=== PATIENT | male | born 1945 | race Caucasian/White ===

== ENCOUNTER 2024-02-03 13:43 | Outpatient (CLI) | payer MEDICARE, BC, SELFPAY ==
[2024-02-03 14:51] LABS: Chloride 105 mmol/L (98-107); Platelet Count 99 K/mm3 (142-424)
[2024-02-03 14:52] LABS: Potassium 4.3 mmoL/L (3.5-5.1); Sodium 139 mmol/L (136-145)
[2024-02-03 14:54] LABS: Alanine Aminotransferase 25 U/L (12-78); Alkaline Phosphatase 104 U/L (38-126); Anion Gap 8.3 mEq/L (5-15); Aspartate Amino Transferase 41 U/L (17-59); Bilirubin,Total 0.7 mg/dl (0.2-1.3); Blood Urea Nitrogen 26 mg/dl (9-20); Carbon Dioxide 30 mmol/L (22.0-30.0); Estimated Glomerular Filt Rate 72 ml/min (>60); GFR (African American) 87 ML/MIN (>60)
[2024-02-03 14:55] LABS: Albumin Level 4.3 g/dl (3.5-5.0); Albumin/Globulin Ratio 1.8 (1.1-1.8); Calcium 9.4 mg/dl (8.4-10.2); Globulin 2.4 g/dL (1.3-3.2); Glucose 87 mg/dl (74-100); Total Protein,Serum 6.7 g/dl (6.3-8.2)
[2024-02-03 14:58] LABS: Basophils # 0.2 K/mm3 (0-0.2); Eosinophils # 0.2 K/mm3 (0.0-0.4); Eosinophils % 0.8 % (0.1-12.0); Hematocrit 42.9 % (42.0-52.0); Hemoglobin 13.9 g/dL (14.1-18.0); Lymphocytes # 12.5 K/mm3 (0.7-4.5); Lymphocytes % 66.5 % (10-50); Mean Corpuscular HGB Conc 32.3 g/dL (31.8-35.4); Mean Corpuscular Volume 105.3 fl (80-94); Mean Platelet Volume 16.2 fl (7.4-10.4); Monocytes # 0.4 K/mm3 (0.1-1.0); Monocytes % 2.4 % (1.7-9.3); Neutrophils # 5.5 K/mm3 (1.8-7.8); Neutrophils % 29.4 % (37.0-80.0); Platelet Count 60 K/mm3 (142-424); Red Blood Count 4.08 M/mm3 (4.60-6.20); Red Cell Distribution Width 13.4 % (11.5-17.5); White Blood Count 18.8 K/mm3 (4.8-10.8)
[2024-02-03 15:01] LABS: MANUAL DIFFERENTIAL MANUAL DIFFERENTIAL (MANUAL DIFF)
[2024-02-03 15:19] LABS: Lymphocytes % 70 % (10-50); Macrocytosis 1+; Monocytes % 3 % (2-9); Neutrophils % 25 % (42-76); Platelet Estimate Moderate Decrease; Total Cells Counted 100
[2024-02-03 15:20] LABS: Lactate Dehydrogenase 208 U/L (313-618)
== END 2024-02-03 23:59 ==
LOC: LAB 13:48
PROVIDERS: Visit Provider Internal Medicine Medical Oncology
DX: C91.10 Chronic lymphocytic leukemia of B-cell type not having achieved remission (principal); Z79.899 Other long term (current) drug therapy
CPT/HCPCS: 36415; 80053; 83615; 85007; 85025; 85049

== ENCOUNTER 2024-08-11 14:29 | Outpatient (CLI) | payer MEDICARE, BC, SELFPAY ==
[2024-08-12 14:15] LABS: Lyme Ab CIA Negative (Negative)
== END 2024-08-11 23:59 | disposition home or self-care (01) ==
LOC: LAB 14:30
PROVIDERS: Visit Provider Internal Medicine Medical Oncology
DX: C91.10 Chronic lymphocytic leukemia of B-cell type not having achieved remission (principal)
CPT/HCPCS: 36415; 86618

== ENCOUNTER 2025-02-08 13:59 | Outpatient (CLI) | payer MEDICARE, BC, SELFPAY ==
[2025-02-08 14:39] LABS: Basophils # 0.1 K/mm3 (0-0.2); Basophils % 0.3 % (0.1-2.0); Eosinophils # 0.2 K/mm3 (0.0-0.4); Eosinophils % 0.7 % (0.1-12.0); Hematocrit 39.5 % (42.0-52.0); Hemoglobin 12.9 g/dL (14.1-18.0); Lymphocytes # 24.7 K/mm3 (0.7-4.5); Lymphocytes % 78.9 % (10-50); Mean Corpuscular HGB Conc 32.7 g/dL (31.8-35.4); Mean Platelet Volume 10.8 fl (7.4-10.4); Monocytes # 1.6 K/mm3 (0.1-1.0); Neutrophils # 4.7 K/mm3 (1.8-7.8); Platelet Count 115 K/mm3 (142-424); Red Blood Count 3.91 M/mm3 (4.60-6.20)
[2025-02-08 14:47] LABS: Neutrophils % 14.9 % (37.0-80.0)
[2025-02-08 14:48] LABS: White Blood Count 31.3 K/mm3 (4.8-10.8)
[2025-02-08 14:50] LABS: MANUAL DIFFERENTIAL MANUAL DIFFERENTIAL (MANUAL DIFF)
[2025-02-08 14:58] LABS: Alanine Aminotransferase 16 U/L (12-78); Albumin Level 4.4 g/dl (3.5-5.0); Alkaline Phosphatase 84 U/L (38-126); Anion Gap 9.7 mEq/L (5-15); Aspartate Amino Transferase 28 U/L (17-59); Bilirubin,Total 0.7 mg/dl (0.2-1.3); Blood Urea Nitrogen 18 mg/dl (9-20); Calcium 9.9 mg/dl (8.4-10.2); Carbon Dioxide 29 mmol/L (22.0-30.0); Chloride 103 mmol/L (98-107); Estimated Glomerular Filt Rate 81 ml/min (>60); GFR (African American) 98 ML/MIN (>60); Globulin 2.2 g/dL (1.3-3.2); Glucose 122 mg/dl (74-100); Lactate Dehydrogenase 198 U/L (313-618); Potassium 4.7 mmoL/L (3.5-5.1); Sodium 137 mmol/L (136-145); Total Protein,Serum 6.6 g/dl (6.3-8.2)
[2025-02-08 17:41] LABS: Monocytes % 2 % (2-9); Neutrophils % 22 % (42-76); Platelet Estimate Normal; RBC Morphology Normal; Total Cells Counted 100
[2025-02-08 17:43] LABS: Atypical Lymphocytes % 3; Lymphocytes % 73 % (10-50)
[2025-02-10 14:04] LABS: Peripheral Smear Review Scanned Result
== END 2025-02-08 23:59 | disposition home or self-care (01) ==
LOC: LAB 14:01
PROVIDERS: PCP Internal Medicine; Visit Provider Internal Medicine Medical Oncology
DX: C91.10 Chronic lymphocytic leukemia of B-cell type not having achieved remission (principal)
CPT/HCPCS: 36415; 80053; 83615; 85007; 85025; 85027

== ENCOUNTER 2025-08-09 13:39 | Outpatient (CLI) | payer MEDICARE, BC, SELFPAY ==
--- OUTSIDE RECORDS SUMMARY | 2025-08-09 13:45 | XMS_ITS ---
Author Organization [facility] Address [address] [place] [address] Care Team Providers Care Technical Sales Advisor Name Role Phone BeitingBhargav MD Primary Care Provider + [phone] Active Problems Problem Noted Date Diagnosed Date AV block, complete 02/10/2024 Presence of cardiac pacemaker 02/10/2024 Bradycardia 10/12/2023 Heart block 10/12/2023 Essential hypertension 10/12/2023 Chronic lymphocytic leukemia (CLL), B-cell 10/12 Mixed hyperlipidemia 10/12/2023 DM (diabetes mellitus), type 2 10/12/2023 Hypothyroidism (acquired) 10/12/2023 SSS (sick sinus syndrome) 10/12/2023 Current Treatment and Therapy Plans No current plan information found. Past Treatment and Therapy Plans No past plan information found. Lifetime Dose Tracking * Chemical Lifetime Dose Automatic Entry Manual Entr y Cumulative Air Kerma 131 mGy 0 mGy 131 mGy
--- OUTSIDE RECORDS SUMMARY | 2025-08-09 13:45 | XMS_ITS | Encounter Summary ---
Author Organization Healthcare Address [address] [place] [address] Care Team Providers Care Habilitative Interventionist Name Role Phone Unavailable Primary Care Provider Unavailabl e Encounter Details Date Type Department Care Team (Late st Contact Info) Description 09/27/2021 Orders Only [facility] @ [facility] [address] [place] [address] Bhargav Gambino MD 1221 [facility] [address] [place] [address] Social History Tobacco Use Types Packs/Day Years Used Date Smoking Tobacco: Never Assessed Sex and Gender Information Value Date Recorded Sex Assigned at Not on file Legal Sex Male 7:52 PM EDT Gender Identity Not on file Sexual Orientation Not on file documented as of this encounter Plan of Treatment Not on file documented as of this encounter Procedures Procedure Name Priority Date/Time Associated Diagnosis Comments HEMOGLOBIN A1C Routine 09/27/2021 12:12 PM EST documented in this encounter Results * (ABNORMAL) Hemoglobin A1c (09/27/2021 12:12 PM EST) External Glycosylated Hemoglobin (Hgb A1C) 8.1(H) 0.0 - 5.6 % [facility] External Estimated Average Glucose 186 mg/dl (calc) [facility] Comment: A1c values between 5.7% to 6.4% indicate prediabetes. Results 6.5% or greater is diagnostic of diabetes. [employer] (diabetes.org) 09/27/2021 12:1 2 PM EST 09/27/2021 12:25 PM EST us Bhargav Gambino MD LAB BLOOD ORDERABLES Final R esult [facility] [address] [place] [address], documented in this encounter Visit Diagnoses Not on filedocumented in this encounter
--- OUTSIDE RECORDS SUMMARY | 2025-08-09 13:45 | XMS_ITS | Encounter Summary ---
Author Organization Healthcare Address [address] [place] [address] Care Team Providers Care 4Th Grade Teacher Name Role Phone Unavailable Primary Care Provider Unavailabl e Encounter Details Date Type Department Care Team (Late st Contact Info) Description 04/04/2022 Orders Only [facility] @ [facility] [address] [place] [address] Bhargav Gambino MD 1221 [facility] [address] [place] [address] Social History Tobacco Use Types Packs/Day Years [...] Procedure Name Priority Date/Time Associated Diagnosis Comments LIPID PROFILE, PLASMA Routine 04/04/2022 10:35 AM EDT documented in this encounter Results * (ABNORMAL) Lipid Profile, Plasma (04/04/2022 10:35 AM EDT) External HDL Cholesterol 36(A) [facility] Comment: Male > 39 mg/dL Female > 49 mg/dL External Triglycerides 49 0 - 149 mg/dL [facility] Comment: TRIGLYCERIDE RANGES NORMAL: < 150 BORDERLINE HIGH: 150 - 199 HIGH: 200 - 499 VERY HIGH: > OR = 500 External Cholesterol 114 0 - 199 mg/dL [facility] Comment: CHOLESTEROL (TOTAL) RANGES DESIRABLE: < 200 BORDERLINE: 200 - 239 HIGHER RISK: > 239 External LDL Cholesterol 68 0 - 99 mg/dl (calc) [facility] Comment: LDL CHOLESTEROL RANGES OPTIMAL: < 100 NEAR/ABOVE OPTIMAL: 100 - 129 BORDERLINE HIGH: 130 - 159 HIGH: 160 - 189 VERY HIGH: > OR = 190 04/04/2022 10:3 5 AM EDT 04/04/2022 10:57 AM EDT us Bhargav Gambino MD LAB BLOOD ORDERABLES Final R esult Performing Organization Address City/State/[facility] Co de Phone Number [facility] [address] [place] [address], documented in this encounter Visit Diagnoses Not on filedocumented in this encounter
--- OUTSIDE RECORDS SUMMARY | 2025-08-09 13:45 | XMS_ITS | Encounter Summary ---
Author Organization Healthcare Address [address] [place] [address] Care Team Providers Care Store Product Demonstrator Name Role Phone Unavailable Primary Care Provider Unavailabl e Encounter Details Date Type Department Care Team (Late st Contact Info) Description 04/04/2022 Orders Only [facility] @ [facility] [address] [place] [address] Bhargav Gambino MD 1221 [facility] [address] [place] [address] Social History Tobacco Use Types Packs/Day Years [...] Date/Time Associated Diagnosis Comments HEMOGLOBIN A1C Routine 04/04/2022 10:35 AM EDT documented in this encounter Results * (ABNORMAL) Hemoglobin A1c (04/04/2022 10:35 AM EDT) External Glycosylated Hemoglobin (Hgb A1C) 7.1(H) 0.0 - 5.6 % [facility] External Estimated Average Glucose 157 mg/dl (calc) [facility] Comment: A1c values between 5.7% to 6.4% indicate prediabetes. Results 6.5% or greater is diagnostic of diabetes. [employer] (diabetes.org) 04/04/2022 10:3 5 AM EDT 04/04/2022 10:55 AM EDT us Bhargav Gambino MD LAB BLOOD ORDERABLES Final R esult [facility] [address] [place] [address], documented in this encounter Visit Diagnoses Not on filedocumented in this encounter
--- OUTSIDE RECORDS SUMMARY | 2025-08-09 13:45 | XMS_ITS | Encounter Summary ---
Author Organization Healthcare Address [address] [place] [address] Care Team Providers Care Analytical Chemist Name Role Phone Unavailable Primary Care Provider Unavailabl e Encounter Details Date Type Department Care Team (Late st Contact Info) Description 04/04/2022 Orders Only [facility] @ [facility] [address] [place] [address] Bhargav Gambino MD 1221 [facility] [address] [place] [address] Social History Tobacco Use Types Packs/Day Years [...] Procedure Name Priority Date/Time Associated Diagnosis Comments MANUAL DIFFERENTIAL Routine 04/04/2022 1 0:35 AM EDT documented in this encounter Results * Manual Differential (04/04/2022 10:35 AM EDT) External Band Neutrophil% 1.0 0.0 - 7.0 % [facility] External Atypical Lymph% 0 0 - 1 % [facility] External Metamyelocyte % 0 0 - 1 % [facility] External Myelocyte % 0 0 - 1 % [facility] External Promyelocyte% 0 % [facility] External Blast% 0 % [facility] External Nucleated RBC%-Manual 0 /100 WBC [facility] External Smudge Cells 0 [facility] External RBC Morphology Comment NORMAL [facility] 04/04/2022 10:3 5 AM EDT 04/04/2022 10:56 AM EDT us Bhargav Gambino MD LAB BLOOD ORDERABLES Final R esult Performing Organization Address City/State/[facility] Co de Phone Number [facility] [address] [place] [address], documented in this encounter Visit Diagnoses Not on filedocumented in this encounter
--- OUTSIDE RECORDS SUMMARY | 2025-08-09 13:45 | XMS_ITS | Encounter Summary ---
Author Organization Healthcare Address [address] [place] [address] Care Team Providers Care Aoc Director Combat Plans Officer Name Role Phone Unavailable Primary Care Provider Unavailabl e Encounter Details Date Type Department Care Team (Late st Contact Info) Description 09/27/2021 Orders Only [facility] @ [facility] [address] [place] [address] Bhargav Gambino MD 1221 [facility] [address] [place] [address] Social History Tobacco Use Types Packs/Day Years [...] Procedure Name Priority Date/Time Associated Diagnosis Comments CBC WITH AUTO DIFFERENTIAL Routine 09/27/2021 12:12 PM EST documented in this encounter Results * (ABNORMAL) CBC and Differential (09/27/2021 12:12 PM EST) External WBC 15.6(H) 3.8 - 10.8 K/uL [facility] External Red Blood Cell (RBC) 4.38 4.20 - 5.80 M/uL [facility] External Hemoglobin 14.0 14.0 - 18.0 G/DL [facility] External Hematocrit 42.0 40.0 - 52.0 % [facility] External MCV 96 80 - 100 fL [facility] External MCH 32 26 - 35 PG [facility] External MCHC 33 32 - 36 G/DL [facility] External RDW 13.4 11.0 - 15.0 % [facility] External Mean Platelet Volume 9.3 6.2 - 10.5 fL [facility] External Platelets 132 130 - 400 K/uL [facility] Comment: Occ. macrothrombocytes noted. External Neutrophil# 6.2 1.6 - 8.4 K/uL [facility] External Lymphocyte# 8.0(H) 0.4 - 5.1 K/uL [facility] External Absolute Monocyte (Abs [place]) 1.1 0.0 - 1.2 K/uL [facility] External Eosinophils# 0.3 0.0 - 0.8 K/uL [facility] External Baso# 0.0 0.0 - 0.3 K/uL [facility] External Neutrophils % 40.0(L) 42.0 - 78.0 % [facility] External Lymphocyte % 51.0(H) 11.0 - 47.0 % [facility] External Monocyte % 7.0 0.0 - 11.0 % [facility] External Eosinophil% 2.0 0.0 - 7.0 % [facility] External Basophil % 0.0 0.0 - 3.0 % [facility] External Nucleated RBC%-Auto 0.1 0.0 - 0.9 % [facility] External Nucleated RBC Absolute 0.02 Not Estab. K/uL [facility] 09/27/2021 12:1 2 PM EST 09/27/2021 12:25 PM EST Bhargav Gambino MD LAB BLOOD ORDERABLES Final R esult [facility] [address] [place] [address], documented in this encounter Visit Diagnoses Not on filedocumented in this encounter
--- OUTSIDE RECORDS SUMMARY | 2025-08-09 13:45 | XMS_ITS | Encounter Summary ---
Author Organization Healthcare Address [address] [place] [address] Care Team Providers Care Relay Motorman Name Role Phone Unavailable Primary Care Provider Unavailabl e Encounter Details Date Type Department Care Team (Late st Contact Info) Description 10/04/2022 Orders Only [facility] @ [facility] [address] [place] [address] Bhargav Gambino MD 1221 [facility] [address] [place] [address] Social History Tobacco Use Types Packs/Day Years [...] Date/Time Associated Diagnosis Comments HEMOGLOBIN A1C Routine 10/04/2022 12:19 PM EST documented in this encounter Results * (ABNORMAL) Hemoglobin A1c (10/04/2022 12:19 PM EST) External Glycosylated Hemoglobin (Hgb A1C) 6.7(H) 0.0 - 5.6 % [facility] External Estimated Average Glucose 146 mg/dl (calc) [facility] Comment: A1c values between 5.7% to 6.4% indicate prediabetes. Results 6.5% or greater is diagnostic of diabetes. [place] (diabetes.org) 10/04/2022 12:1 9 PM EST 10/04/2022 12:26 PM EST us Bhargav Gambino MD LAB BLOOD ORDERABLES Final R esult [facility] [address] [place] [address], documented in this encounter Visit Diagnoses Not on filedocumented in this encounter
--- OUTSIDE RECORDS SUMMARY | 2025-08-09 13:45 | XMS_ITS | Encounter Summary ---
Author Organization Healthcare Address [address] [place] [address] Care Team Providers Care Highway Maintenance Crew Worker Name Role Phone Unavailable Primary Care Provider Unavailabl e Encounter Details Date Type Department Care Team (Late st Contact Info) Description 09/27/2021 Orders Only [facility] @ [facility] [address] [place] [address] Bhargav Gambino MD 1221 [facility] [address] [place] [address] Social History Tobacco Use Types Packs/Day Years [...] Procedure Name Priority Date/Time Associated Diagnosis Comments MICROALBUMIN/CREATI NINE RATIO Routine 09/27/2021 12:12 PM EST documented in this encounter Results * Microalbumin/Creatinine Ratio (09/27/2021 12:12 PM EST) External Microalbumin Urine Conc <12 0 - 19 mg/L [facility] External Creatinine,Ur Random <4 mg/dL [facility] Comment:NO NORMAL RANGE ES TABLISHED FOR RANDOM URINE. External Microalb/Creat Ratio see below 0 - 29 MCG/MG [facility] Comment:Unable to calculate microalbumin/creatinine ratio. 09/27/2021 12:1 2 PM EST 09/27/2021 1:28 PM EST us Bhargav Gambino MD LAB URINE ORDERABLES Final R esult [facility] [address] [place] [address], documented in this encounter Visit Diagnoses Not on filedocumented in this encounter
--- OUTSIDE RECORDS SUMMARY | 2025-08-09 13:45 | XMS_ITS | Encounter Summary ---
Author Organization Healthcare Address [address] [place] [address] Care Team Providers Care Tap And Die Maker Technician Name Role Phone Unavailable Primary Care Provider Unavailabl e Encounter Details Date Type Department Care Team (Late st Contact Info) Description 04/04/2022 Orders Only [facility] @ [facility] [address] [place] [address] Bhargav Gambino MD [address] [facility] [address] [place] [address] Social History Tobacco Use Types Packs/Day Years [...] Diagnosis Comments CBC WITH AUTO DIFFERENTIAL Routine 04/04/2022 10:35 AM EDT documented in this encounter Results * (ABNORMAL) CBC and Differential (04/04/2022 10:35 AM EDT) External WBC 10.9(H) 3.8 - 10.8 K/uL [facility] External Red Blood Cell (RBC) 4.15(L) 4.20 - 5.80 M/uL [facility] External Hemoglobin 13.5(L) 14.0 - 18.0 G/DL [facility] External Hematocrit 40.2 40.0 - 52.0 % [facility] External MCV 97 80 - 100 fL [facility] External MCH 33 26 - 35 PG [facility] External MCHC 34 32 - 36 G/DL [facility] External RDW 13.4 11.0 - 15.0 % [facility] External Mean Platelet Volume 8.8 6.2 - 10.5 fL [facility] External Platelets 60(L) 130 - 400 K/uL [facility] Comment: Occ. macrothrombocytes noted. External Neutrophil# 4.8 1.6 - 8.4 K/uL [facility] External Lymphocyte# 5.8(H) 0.4 - 5.1 K/uL [facility] External Absolute Monocyte (Abs [place]) 0.2 0.0 - 1.2 K/uL [facility] External Eosinophils# 0.1 0.0 - 0.8 K/uL [facility] External Baso# 0.0 0.0 - 0.3 K/uL [facility] External Neutrophils % 43.0 42.0 - 78.0 % [facility] External Lymphocyte % 53.0(H) 11.0 - 47.0 % [facility] External Monocyte % 2.0 0.0 - 11.0 % [facility] External Eosinophil% 1.0 0.0 - 7.0 % [facility] External Basophil % 0.0 0.0 - 3.0 % [facility] External Nucleated RBC%-Auto 0.2 0.0 - 0.9 % [facility] External Nucleated RBC Absolute 0.03 Not Estab. K/uL [facility] 04/04/2022 10:3 5 AM EDT 04/04/2022 10:56 AM EDT us Bhargav Gambino MD LAB BLOOD ORDERABLES Final R esult [facility] [address] [place] [address], documented in this encounter Visit Diagnoses Not on filedocumented in this encounter
--- OUTSIDE RECORDS SUMMARY | 2025-08-09 13:45 | XMS_ITS | Encounter Summary ---
Author Organization Healthcare Address [address] [place] [address] Care Team Providers Care Gifted Program Teacher Name Role Phone Unavailable Primary Care Provider Unavailabl e Encounter Details Date Type Department Care Team (Late st Contact Info) Description 09/27/2021 Orders Only [facility] @ [facility] [address] [place] [address] Bhargav Gambino MD [address] [place] [address] Social History Tobacco Use Types Packs/Day Years [...] Procedure Name Priority Date/Time Associated Diagnosis Comments TSH Routine 09/27/2021 12:12 PM EST documented in this encounter Results * Thyroid Stimulating Hormone, Plasma (09/27/2021 12:12 PM EST) External Thyroid Stimulating Hormone (TSH) 2.820 0.270 - 4.200 uIU/mL [facility] 09/27/2021 12:1 2 PM EST 09/27/2021 12:27 PM EST us Bhargav Gambino MD LAB BLOOD ORDERABLES Final R esult [facility] [address] [place] [address], documented in this encounter Visit Diagnoses Not on filedocumented in this encounter
--- OUTSIDE RECORDS SUMMARY | 2025-08-09 13:45 | XMS_ITS | Encounter Summary ---
Author Organization Healthcare Address [address] [place] [address] Care Team Providers Care Anvilsmith Name Role Phone Unavailable Primary Care Provider Unavailabl e Encounter Details Date Type Department Care Team (Late st Contact Info) Description 09/27/2021 Orders Only [facility] @ [facility] [address] [place] [address] Bhargav Gambino MD [address] [facility] [address] [place] [address] Social History Tobacco Use Types Packs/Day Years [...] Procedure Name Priority Date/Time Associated Diagnosis Comments COMPREHENSIVE METABOLIC PANEL, PLASMA Routine 09/27/2021 12:12 PM EST documented in this encounter Results * (ABNORMAL) Comprehensive Metabolic Panel, Plasma (09/27/2021 12:12 PM EST) External Glucose 162(H) 74 - 100 mg/dL [facility] External BUN 14 6 - 20 mg/dL [facility] External Creatinine Blood 0.91 0.70 - 1.28 mg/dL [facility] External BUN/Creat Ratio 15 10 - 20 (calc) [facility] External Sodium 143 136 - 145 mmol/L [facility] External Potassium 4.1 3.4 - 5.0 mmol/L [facility] External Chloride 105 98 - 107 mmol/L [facility] External Carbon Dioxide 25 22 - 31 mmol/L [facility] External Anion Gap (AG) 13 7 - 25 (calc) [facility] External Calcium 9.4 8.6 - 10.2 mg/dL [facility] External Total Protein 6.7 6.4 - 8.3 g/dL [facility] External Albumin 4.5 3.5 - 5.2 g/dL [facility] External Globulin 2.2 1.5 - 4.5 g/dL (calc) [facility] External Albumin/Globulin Ratio 2.0 1.1 - 2.5 (calc) [facility] External Bilirubin Total 0.6 0.1 - 1.2 mg/dL [facility] External Alkaline Phosphatase 131(H) 40 - 129 U/L [facility] External AST (SGOT) 23 0 - 40 U/L [facility] External ALT (SGPT) 17 0 - 41 U/L [facility] External EGFR (If AFR/AM) 94 >=60 [facility] External Estimated GFR 81 >=60 [facility] Comment: NOTE Chronic kidney disease is defined as kidney damage for more than 3 months or a GFR less than 60 mL/min/1.73 m2 for greater than 3 months. This calculation has not been validated in women. For pediatric patients refer to [employer] https://www.kidney.org/professionals/KDOQI/gfr_calculatorPed 09/27/2021 12:1 2 PM EST 09/27/2021 12:27 PM EST Bhargav Gambino MD LAB BLOOD ORDERABLES Final R esult [facility] [address] [place] [address], documented in this encounter Visit Diagnoses Not on filedocumented in this encounter
--- OUTSIDE RECORDS SUMMARY | 2025-08-09 13:45 | XMS_ITS | Encounter Summary ---
Author Organization Healthcare Address [address] [place] [address] Care Team Providers Care Rn Bsn Name Role Phone Unavailable Primary Care Provider Unavailabl e Encounter Details Date Type Department Care Team (Late st Contact Info) Description 09/27/2021 Orders Only [facility] @ [facility] [address] [place] [address] Bhargav Gambino MD 1221 [facility] [address] [place] [address] Social History Tobacco Use Types Packs/Day Years [...] Date/Time Associated Diagnosis Comments MANUAL DIFFERENTIAL Routine 09/27/2021 1 2:12 PM EST documented in this encounter Results * Manual Differential (09/27/2021 12:12 PM EST) External Band Neutrophil% 0.0 0.0 - 7.0 % [facility] External Atypical Lymph% 0 0 - 1 % [facility] External Metamyelocyte % 0 0 - 1 % [facility] External Myelocyte % 0 0 - 1 % [facility] External Promyelocyte% 0 % [facility] External Blast% 0 % [facility] External Nucleated RBC%-Manual 0 /100 WBC [facility] External Smudge Cells 0 [facility] External RBC Morphology Comment NORMAL [facility] 09/27/2021 12:1 2 PM EST 09/27/2021 12:25 PM EST us Bhargav Gambino MD LAB BLOOD ORDERABLES Final R esult Performing Organization Address City/State/[facility] Co de Phone Number [facility] [address] [place] [address], documented in this encounter Visit Diagnoses Not on filedocumented in this encounter
--- OUTSIDE RECORDS SUMMARY | 2025-08-09 13:45 | XMS_ITS | Encounter Summary ---
Author Organization Healthcare Address [address] [place] [address] Care Team Providers Care Surgical Physician Assistant Name Role Phone Unavailable Primary Care Provider Unavailabl e Encounter Details Date Type Department Care Team (Late st Contact Info) Description 09/27/2021 Orders Only [facility] @ [facility] [address] [place] [address] Bhargav Gambino MD 1221 [facility] [address] [place] [address] Social History Tobacco Use Types Packs/Day Years [...] Associated Diagnosis Comments LIPID PROFILE, PLASMA Routine 09/27/2021 12:12 PM EST documented in this encounter Results * (ABNORMAL) Lipid Profile, Plasma (09/27/2021 12:12 PM EST) External HDL Cholesterol 35(L) 56 - 242 mg/dL [facility] External Triglycerides 73 0 - 149 mg/dL [facility] Comment: TRIGLYCERIDE RANGES NORMAL: < 150 BORDERLINE HIGH: 150 - 199 HIGH: 200 - 499 VERY HIGH: > OR = 500 External Cholesterol 114 0 - 199 mg/dL [facility] Comment: CHOLESTEROL (TOTAL) RANGES DESIRABLE: < 200 BORDERLINE: 200 - 239 HIGHER RISK: > 239 External LDL Cholesterol 64 0 - 99 mg/dl (calc) [facility] Comment: LDL CHOLESTEROL RANGES OPTIMAL: < 100 NEAR/ABOVE OPTIMAL: 100 - 129 BORDERLINE HIGH: 130 - 159 HIGH: 160 - 189 VERY HIGH: > OR = 190 09/27/2021 12:1 2 PM EST 09/27/2021 12:27 PM EST us Bhargav Gambino MD LAB BLOOD ORDERABLES Final R esult [facility] [address] [place] [address], documented in this encounter Visit Diagnoses Not on filedocumented in this encounter
--- OUTSIDE RECORDS SUMMARY | 2025-08-09 13:45 | XMS_ITS | Encounter Summary ---
Author Organization Healthcare Address [address] [place] [address] Care Team Providers Care Flight Service Specialist Name Role Phone Unavailable Primary Care Provider Unavailabl e Encounter Details Date Type Department Care Team (Late st Contact Info) Description 04/04/2022 Orders Only [facility] [address] [place] [address] Bhargav Gambino MD [address] [facility] [address] [place] [address] Social History Tobacco Use Types Packs/Day Years [...] Associated Diagnosis Comments MICROALBUMIN/CREATI NINE RATIO Routine 04/04/2022 10:35 AM EDT documented in this encounter Results * Microalbumin/Creatinine Ratio (04/04/2022 10:35 AM EDT) External Microalbumin Urine Conc <12 0 - 19 mg/L [facility] External Creatinine,Ur Random 80 mg/dL [facility] Comment:NO NORMAL RANGE ES TABLISHED FOR RANDOM URINE. External Microalb/Creat Ratio see below 0 - 29 MCG/MG [facility] Comment:Unable to calculate microalbumin/creatinine ratio. 04/04/2022 10:3 5 AM EDT 04/04/2022 11:06 AM EDT us Bhargav Gambino MD LAB URINE ORDERABLES Final R esult [facility] [address] [place] [address], documented in this encounter Visit Diagnoses Not on filedocumented in this encounter
--- OUTSIDE RECORDS SUMMARY | 2025-08-09 13:45 | XMS_ITS | Clinical Summary ---
Author Organization [facility] Address [address] [place] [address] Care Team Providers Care Asset Protection Assistant Name Role Phone SonnymilagrosBhargav MD Primary Care Provider + [phone] Allergies No known active allergies Medications metFORMIN (GLUCOPHAGE) 1000 MG tablet Take 1 tablet by mouth Daily With Breakfast. Active aspirin 81 MG EC tablet Take 1 tablet by mouth Daily. OTC Active atorvastatin (LIPITOR) 20 MG tablet Take 1 tablet by mouth Every Night. Active pioglitazone (ACTOS) 15 MG tablet Take 1 tablet by mouth Daily. Active levothyroxine (SYNTHROID, LEVOTHROID) 88 MCG tablet Take 175 mcg by mouth Every Morning. Active glimepiride (AMARYL) 4 MG tablet Take 1 tablet by mouth Daily. 08/24/2023 Active lisinopril (PRINIVIL,ZESTRI L) 2.5 MG tablet Take 1 tablet by mouth Daily. Active Active Problems Problem Noted Date Diagnosed Date AV block, complete 02/10/2024 Presence of cardiac pacemaker 02/10/2024 Bradycardia 10/12/2023 Heart block 10/12/2023 Essential hypertension 10/12/2023 Chronic lymphocytic leukemia (CLL), B-cell 10/12 Mixed hyperlipidemia 10/12/2023 DM (diabetes mellitus), type 2 10/12/2023 Hypothyroidism (acquired) 10/12/2023 SSS (sick sinus syndrome) 10/12/2023 Family History Medical History Relation Name Comments Heart attack Father Heart disease Father Heart disease Mother Relation Name Status Comments Father Mother Social History Tobacco Use Types Packs/Day Years Used Date Smoking Tobacco: Former Cigarettes S tarted: 1983 Passive Smoke Exposure: Past Smokeless Tobacco: Never Tobacco Cessation:Counseling Given: Not Answered Alcohol Use Standard Drinks/Week Comments Not Currently 1 (1 standard drink = 0.6 oz pur e alcohol) occ AUDIT-C Answer Date Recorded Q1: How often do you have a drink containing alcohol? Never 10/12/2023 Q2: How many drinks containi ng alcohol do you have on a typical day when you are drinking? Patient does not drink Q3: How often do you have si x or more drinks on one occasion? Never 10/12/2023 Abuse Screen Answer Date Recorded Feels Unsafe at Home or Work/School no 10/12/2023 Feels Threatened by Someone no 09/18 Does Anyone Try to Keep You From Having Contact with Others or Doing Things Outside Your Home? no 10/12/2023 Physical Signs of Abuse Present no 10/12/2023 Housing Stability Answer Date Recorded Current Living Arrangements home 09/18 Potentially Unsafe Housing Conditions none 10/13/2023 Family and Community Support Answer Siddharth e Recorded Help with Day-to-Day Activities Not on file 10/12/2023 Lonely or Isolated Not on file 10/12/2023 Employment Answer Date Recorded Do you want help finding or keeping work or a chris b? Not on file 10/12/2023 Disabilities Answer Date Recorded Difficulty Concentrating, Remembering or Making Decisions no 10/12/2023 Difficulty Managing Errands Independently no 10/12/2023 Education Answer Date Recorded Help with school or training? Not on file Preferred Language Pashto 10/13/2023 Sex and Gender Information Value Date Recorded Sex Assigned at Not on file Legal Sex Male 12:40 PM EST Gender Identity Not on file Sexual Orientation Not on file Last Filed Vital Signs Vital Sign Reading Time Taken Comments Blood Pressure 122/68 08/24/2024 2:28 PM EDT Pulse 67 08/24/2024 2:28 PM EDT Temperature 36.8 C (98.3 F) 10/14/2023 11:30 AM EST Respiratory Rate 16 10/14/2023 11:30 AM EST Oxygen Saturation 98% 08/24/2024 2:28 PM EDT Inhaled Oxygen Concentration - - Weight 74.4 kg (164 lb) 08/24/2024 2:28 PM EDT Height 175.3 cm (5' 9 ) 08/24/2024 2:28 PM EDT Body Mass Index 24.22 08/24/2024 2:28 PM EDT Plan of Treatment Upcoming Encounters Date Type Department Care Team (Late st Contact Info) Description 09/13/2025 2:[address] EDT Office Visit [facility] [address] [facility] [address] [place] [id number] Marky Wade MD [address] [facility] [address] [place] [address] Health Maintenance Due Date Last Done Comments DIABETIC EYE EXAM 1955 URINE MICROALBUMIN-CREATININ E RATIO (uACR) 1955 ZOSTER VACCINE (1 of 2) 06/01/2019 04/06/20 19, 12/25/2017, 08/31/2014 RSV Vaccine - Adults (1 - 1- dose 75+ series) 2019 TDAP/TD VACCINES (2 - Td or Tdap) 03/20/2023 013 ANNUAL WELLNESS VISIT 10/21/2023 DIABETIC FOOT EXAM 11/13/2024 11/13/2023, 1 12/07/2021, 10/07/2022, Additional history exists HEMOGLOBIN A1C 02/16/2025 08/18/2024, 12/2023, 05/13/2024, Additional history exists INFLUENZA VACCINE 06/17/2025 08/31/2023, , 08/31/2021, Additional history exists COVID-19 Vaccine (2024-12 6 season) 2025 08/31/2022, 03/01/2022, 08/23/2021, Additional history exists LIPID PANEL 08/18/2025 08/18/2024, 12/2023, 05/13/2024, Additional history exists Pneumococcal Vaccine 50+ Completed 023, 03/20/2017, 05/04/2015, Additional history exists Medical Devices Implanted Type Area E Commerce Manager Device Identifier Shelf Expiration Date Model / Serial / Lot Ld Pace Selectsecure Bipol Str 69cm - [id number] - [id number] Implanted:Qty: 1 on 10/13/2023 by Marky Wade MD at [facility] Lead [employer] 08/25/2025 [id number] / [id number] / Ld Pm Capsurefix [id number] 52cm - [id number] - [id number] Implanted:Qty: 1 on 10/13/2023 by Marky Wade MD at [facility] Lead [employer] 10/17/2024 [id number] / [id number] / Gen Pm Amna Xt Surescan Mri - [id number] - [id number] Implanted:Qty: 1 on 10/13/2023 by Marky Wade MD at [facility] Pacemaker Left: Chest [employer] 03/14/2025 [id number] / [id number] / Procedures Procedure Name Priority Date/Time Associated Diagnosis Comments REMOTE DEVICE CHECK 05/24/2025 9 :51 PM EDT HEMOGLOBIN A1C Routine 10/13/2023 2:20 AM EST from Last 3 Months or Most Recently Relevant to Health Maintenance Results * Remote Device Check (05/24/2025 9:51 PM EDT) Date Time Interrogation Session [id number] [facility] Type Interrogation Session Remote [facility] Implantable Pulse Generator E Commerce Manager Medtronic [facility] Implantable Pulse Generator Type IPG [facility] Implantable Pulse Generator Model [place] XT MRI [id number] [facility] Implantable Pulse Generator Serial Number [id number] [facility] Implantable Pulse Generator Implant Date [id number] [facility] Battery Remaining Longevity 117.0 mo [facility] Battery Voltage 3.020 [facility] Battery TIE MAN Trigger 2.625 [facility] Battery Status OK [facility] Jatin Statistic RA Percent Paced 30.57 [facility] Jatin Statistic RV Percent Paced 99.89 [facility] Atrial Tachy Statistic AT/AF Echo Percent 0.00 [facility] Lead Channel RA Sensing Intrinsic Amplitude 2.375 [facility] Lead Channel Setting RA Sensing Sensitivity 0.45 [facility] Lead Channel RA Impedance Value 380 [facility] Lead Channel RA Pacing Threshold Amplitude 0.500 [facility] Lead Channel RA Pacing Threshold Pulse Width 0.4 [facility] Lead Channel RA Measurements Date and Time 20250524 [facility] Lead Channel Setting RA Pacing Amplitude 1.500 [facility] Lead Channel Setting RA Pacing Pulse Width 0.4 [facility] Lead Channel RV Sensing Intrinsic Amplitude 28.250 [facility] Lead Channel Setting RV Sensing Sensitivity 1.20 [facility] Lead Channel RV Impedance Value 494 [facility] Lead Channel RV Pacing Threshold Amplitude 1.250 [facility] Lead Channel RV Pacing Threshold Pulse Width 0.4 [facility] Lead Channel RV Measurements Date and Time 20250524 [facility] Lead Channel Setting RV Pacing Amplitude 2.500 [facility] Lead Channel Setting RV Pacing Pulse Width 0.4 [facility] Jatin Setting Mode (NBG Code) DDD [facility] Jatin Setting Lower Rate Limit 60 [facility] Jatin Setting AT Mode Switch Rate 171 [facility] Jatin Setting Maximum Tracking Rate 130 [facility] Jatin Setting Maximum Sensor Rate 130 [facility] Jatin Setting PAV Delay 180 [facility] Jatin Setting ELVIE Delay 150 [facility] Lead Channel Setting RA Sensing Polarity Bipolar [facility] Lead Channel Setting RV Sensing Polarity Bipolar [facility] Lead Channel Setting RA Pacing Polarity Bipolar [facility] Lead Channel Setting RV Pacing Polarity Bipolar [facility] Lead Channel RA Pacing Threshold Polarity Bipolar [facility] Lead Channel RV Pacing Threshold Polarity Bipolar [facility] Zone Setting Type Category AT/AF [facility] IDC RATE 1 171 [facility] THERAPIES Some Rx Off [facility] Zone Setting Status Monitor [facility] Zone ID 2 [facility] Zone Setting Type Category VT [facility] IDC RATE 1 150 [facility] Zone Setting Status ENABLED [facility] Zone ID 6 [facility] 05/24/2025 9:51 PM EDT us Marky Wade MD CV IMPLANTABLE CARDIAC DEVICE Fi nal Result [facility] * (ABNORMAL) Hemoglobin A1c (10/13/2023 2:20 AM EST) Hemoglobin A1C 5.80(H) 4.80 - 5.60 % 10/13/2023 3:13 AM EST [facility] Blood Venipuncture / Unknown 10/13/2023 2:20 AM EST 10/13/2023 2:26 AM EST Narrative [facility] - 10/13/2023 3:13 AM EST Hemoglobin A1C Ranges: Increased Risk for Diabetes 5.7% to 6.4% Diabetes >= 6.5% Diabetic Goal < 7.0% Michael Ward AOC PLANS INTELLIGENCE OFFICER LAB BLOOD ORDERABLES Final R esult [facility]
[address] [phone] from Last 3 Months or Most Recently Relevant to Health Maintenance Insurance MEDICARE A & B [facility] Advance Directives * CPR (Attempt to Resuscitate) (Latest Code Status on File) Date Activated Date Inactivated Comments 10/12/2023 4:32 PM 10/14/2023 4:36 PM Question Answer Comments Code Status (Patient has no pulse and is not breathing): CPR (Attempt to Resuscitate) Medical Interventions (Patie nt has pulse or is breathing): Full Support Comments: Discussed with patie nt and son at bedside. Level Of Support Discussed With: Patient Care Teams Asset Protection Assistant Relationship Specialty Start Date End Date Bhargav Gambino MD [address] [facility] [address] [place] [address] PCP - General Internal Medicine 10/12/23
--- OUTSIDE RECORDS SUMMARY | 2025-08-09 13:46 | XMS_ITS | Encounter Summary ---
Author Organization Healthcare Address [address] [place] [address] Care Team Providers Care Pourer Buggy Ladle Name Role Phone Unavailable Primary Care Provider Unavailabl e Encounter Details Date Type Department Care Team (Late st Contact Info) Description 10/04/2022 Orders Only [facility] [address] [place] [address] Bhargav Gambino MD [address] [facility] [address] [place] [address] Social History Tobacco Use Types Packs/Day Years [...] Diagnosis Comments CBC WITH AUTO DIFFERENTIAL Routine 10/04/2022 12:19 PM EST documented in this encounter Results * (ABNORMAL) CBC and Differential (10/04/2022 12:19 PM EST) External WBC 13.5(H) 3.8 - 10.8 K/uL [facility] External Red Blood Cell (RBC) 4.26 4.20 - 5.80 M/uL [facility] External Hemoglobin 13.7(L) 14.0 - 18.0 G/DL [facility] External Hematocrit 41.4 40.0 - 52.0 % [facility] External MCV 97 80 - 100 fL [facility] External MCH 32 26 - 35 PG [facility] External MCHC 33 32 - 36 G/DL [facility] External RDW 13.7 11.0 - 15.0 % [facility] External Mean Platelet Volume 9.4 6.2 - 10.5 fL [facility] External Platelets 111(L) 130 - 400 K/uL [facility] Comment: Occ. macrothrombocytes noted. External Neutrophil# 4.5 1.6 - 8.4 K/uL [facility] External Lymphocyte# 8.0(H) 0.4 - 5.1 K/uL [facility] External Absolute Monocyte (Abs [place]) 0.9 0.0 - 1.2 K/uL [facility] External Eosinophils# 0.1 0.0 - 0.8 K/uL [facility] External Baso# 0.0 0.0 - 0.3 K/uL [facility] External Neutrophils % 33.0(L) 42.0 - 78.0 % [facility] External Lymphocyte % 59.0(H) 11.0 - 47.0 % [facility] External Monocyte % 7.0 0.0 - 11.0 % [facility] External Eosinophil% 1.0 0.0 - 7.0 % [facility] External Basophil % 0.0 0.0 - 3.0 % [facility] External Nucleated RBC%-Auto 0.1 0.0 - 0.9 % [facility] External Nucleated RBC Absolute 0.01 Not Estab. K/uL [facility] 10/04/2022 12:1 9 PM EST 10/04/2022 12:26 PM EST Bhargav Gambino MD LAB BLOOD ORDERABLES Final R esult [facility] [address] [place] [address], documented in this encounter Visit Diagnoses Not on filedocumented in this encounter
--- OUTSIDE RECORDS SUMMARY | 2025-08-09 13:46 | XMS_ITS | Encounter Summary ---
Author Organization Healthcare Address [address] [place] [address] Care Team Providers Care Human Performance Professor Name Role Phone Unavailable Primary Care Provider Unavailabl e Encounter Details Date Type Department Care Team (Late st Contact Info) Description 04/04/2022 Orders Only [facility] @ [facility] [address] [place] [address] Bhargav Gambino MD 12[address] [facility] [address] [place] [address] Social History Tobacco Use Types Packs/Day Years [...] Priority Date/Time Associated Diagnosis Comments TSH Routine 04/04/2022 10:35 AM EDT documented in this encounter Results * Thyroid Stimulating Hormone, Plasma (04/04/2022 10:35 AM EDT) External Thyroid Stimulating Hormone (TSH) 3.450 0.270 - 4.200 uIU/mL [facility] 04/04/2022 10:3 5 AM EDT 04/04/2022 10:57 AM EDT us Bhargav Gambino MD LAB BLOOD ORDERABLES Final R esult [facility] [address] [place] [address], documented in this encounter Visit Diagnoses Not on filedocumented in this encounter
--- OUTSIDE RECORDS SUMMARY | 2025-08-09 13:46 | XMS_ITS | Encounter Summary ---
Author Organization Healthcare Address [address] [place] [address] Care Team Providers Care Pomologist Name Role Phone Unavailable Primary Care Provider Unavailabl e Encounter Details Date Type Department Care Team (Late st Contact Info) Description 10/04/2022 Orders Only [facility] @ [facility] [address] [place] [address] Bhargav Gambino MD [address] [facility] [address] [place] [address] Social History Tobacco Use Types Packs/Day Years [...] Associated Diagnosis Comments MICROALBUMIN/CREATI NINE RATIO Routine 10/04/2022 12:36 PM EST documented in this encounter Results * Microalbumin/Creatinine Ratio (10/04/2022 12:36 PM EST) External Microalbumin Urine Conc 15 0 - 19 mg/L [facility] External Creatinine,Ur Random 115 mg/dL [facility] Comment:NO NORMAL RANGE ES TABLISHED FOR RANDOM URINE. External Microalb/Creat Ratio 13 0 - 29 MCG/MG [facility] 10/04/2022 12:3 6 PM EST 10/04/2022 1:24 PM EST us Bhargav Gambino MD LAB URINE ORDERABLES Final R esult [facility] [address] [place] [address], documented in this encounter Visit Diagnoses Not on filedocumented in this encounter
--- OUTSIDE RECORDS SUMMARY | 2025-08-09 13:46 | XMS_ITS | Encounter Summary ---
Author Organization Healthcare Address [address] [place] [address] Care Team Providers Care Warper Fixer Name Role Phone Unavailable Primary Care Provider Unavailabl e Encounter Details Date Type Department Care Team (Late st Contact Info) Description 10/04/2022 Orders Only [facility] @ [facility] [address] [place] [address] Bhargav Gambino MD 1221 [facility] [address] [place] [address] Social History Tobacco Use Types Packs/Day Years [...] Date/Time Associated Diagnosis Comments MANUAL DIFFERENTIAL Routine 10/04/2022 1 2:19 PM EST documented in this encounter Results * (ABNORMAL) Manual Differential (10/04/2022 12:19 PM EST) External Band Neutrophil% 0.0 0.0 - 7.0 % [facility] External Atypical Lymph% 0 0 - 1 % [facility] External Metamyelocyte % 0 0 - 1 % [facility] External Myelocyte % 0 0 - 1 % [facility] External Promyelocyte% 0 % [facility] External Blast% 0 % [facility] External Nucleated RBC%-Manual 0 /100 WBC [facility] External Smudge Cells 17(A) [facility] External RBC Morphology Comment NORMAL [facility] 10/04/2022 12:1 9 PM EST 10/04/2022 12:26 PM EST us Bhargav Gambino MD LAB BLOOD ORDERABLES Final R esult Performing Organization Address City/State/[facility] Co de Phone Number [facility] [address] [place] [address], documented in this encounter Visit Diagnoses Not on filedocumented in this encounter
--- OUTSIDE RECORDS SUMMARY | 2025-08-09 13:46 | XMS_ITS | Clinical Summary ---
Author Organization Healthcare Address [address] [place] [address] Care Team Providers Care Veneer Clipper Name Role Phone Unavailable Primary Care Provider Unavailabl e Encounters Date Type Department Care Team Description 05/13/2025 Ancillary Procedure [facility] at [facility] [address] [place] [id number] Srinath Gee MD from Last 3 Months Social History Tobacco Use Types Packs/Day Years Used Date Smoking Tobacco: Never Assessed Sex and Gender Information Value Date Recorded Sex Assigned at Not on file Legal Sex Male 7:52 PM EDT Gender Identity Not on file Sexual Orientation Not on file Plan of Treatment Health Maintenance Due Date Last Done Comments [facility]-Depression Screening 1945 [facility]-Infant/Child/Adol SDOH Screenings 1945 [facility]- SDOH Screenings 1962 [facility]-Adult SDOH Screenings 1962 [facility]-DTaP,Tdap,and Td Vaccine s (1 - Tdap) 1963 [facility]-Pneumococcal Vaccine: 50 + Years (1 of 1 - PCV) 1994 [facility]-Zoster Vaccines (1 of 2) 1994 [facility]-RSV Vaccine: 60+ Years o r (1 - 1-dose 75+ series) 2019 VNT-SMOEP-96 Vaccine (1 - 20 24-25 season) 2025 [facility]-Influenza Vaccine (#1) 2025 HPV Vaccines Aged Out No longer eligi ble based on patient's age to complete this topic [facility]-HIB Vaccines Aged Out No longer e ligible based on patient's age to complete this topic [facility]-Hepatitis A Vaccines Aged Out No longer eligible based on patient's age to complete this topic [facility]-IPV Vaccines Aged Out No longer e ligible based on patient's age to complete this topic [facility]-Rotavirus Vaccines Aged Out No lo nger eligible based on patient's age to complete this topic Procedures Procedure Name Priority Date/Time Associated Diagnosis Comments XR LUMBAR SPINE COMPLETE 4-5 VIEWS 05/13/2025 3:00 PM EDT from Last 3 Months Results * XR LUMBAR Spine 4 views AP LAT Flexion Extension (05/13/2025 3:00 PM EDT) Anatomical Region Laterality Modality Spine, L-spine Digital Radiogra phy 05/13/2025 3:00 PM EDT Narrative 05/16/2025 7:59 AM EDT [address] [address] Patient Name: DEVON THOMPSON Patient : 1945 Patient Ordering Provider: SRINATH GEE EXAM DATE: 05/13/2025 EXAM: XR LUMBAR SPINE AP/LAT/FLEX/EXT CLINICAL INFORMATION: Back pain. IMAGES PROVIDED: AP, lateral and coned-down views of the lumbar spine with additional lateral views in flexion and extension. COMPARISON: None. FINDINGS: Vertebral body heights are normal. Multiple disc spaces are narrowed and there is diffuse spurring. Subtle grade 1 anterior listhesis L5 relative to S1. No instability is seen on flexion or extension. No radiographic evidence of injury is noted. 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 Subtle malalignment L5-S1. No instability. Interpreted By: Cleveland Mack MD Procedure Note Cleveland Mack MD - 05/16/[address] [address] Patient Name: DEVON THOMPSON Patient : 1945 Patient Ordering Provider: SRINATH GEE EXAM DATE: 05/13/2025 EXAM: XR LUMBAR SPINE AP/LAT/FLEX/EXT CLINICAL INFORMATION: Back pain. IMAGES PROVIDED: AP, lateral and coned-down views of the lumbar spine with additional lateral views in flexion and extension. COMPARISON: None. FINDINGS: Vertebral body heights are normal. Multiple disc spaces are narrowed and there is diffuse spurring. Subtle grade 1 anterior listhesis L5 relative to S1. No instability is seen on flexion or extension. No radiographic evidence of injury is noted. 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 Subtle malalignment L5-S1. No instability. Interpreted By: Cleveland Mack MD Srinath Gee MD IMG XR PROCEDURES Final Result from Last 3 Months
--- OUTSIDE RECORDS SUMMARY | 2025-08-09 13:46 | XMS_ITS | Encounter Summary ---
Author Organization Healthcare Address [address] [place] [address] Care Team Providers Care Personal Development Mentor Name Role Phone Unavailable Primary Care Provider Unavailabl e Encounter Details Date Type Department Care Team (Late st Contact Info) Description 04/04/2022 Orders Only [facility] @ [facility] [address] [place] [address] Bhargav Gambino MD [address] [facility] [address] [place] [address] Social History Tobacco Use Types Packs/Day Years [...] Diagnosis Comments COMPREHENSIVE METABOLIC PANEL, PLASMA Routine 04/04/2022 10:35 AM EDT documented in this encounter Results * (ABNORMAL) Comprehensive Metabolic Panel, Plasma (04/04/2022 10:35 AM EDT) External Glucose 129(H) 74 - 100 mg/dL [facility] External BUN 13 6 - 20 mg/dL [facility] External Creatinine Blood 0.85 0.70 - 1.28 mg/dL [facility] External BUN/Creat Ratio 15 10 - 20 (calc) [facility] External Sodium 141 136 - 145 mmol/L [facility] External Potassium 4.3 3.4 - 5.0 mmol/L [facility] External Chloride 105 98 - 107 mmol/L [facility] External Carbon Dioxide 26 22 - 31 mmol/L [facility] External Anion Gap (AG) 10 7 - 25 (calc) [facility] External Calcium 9.1 8.6 - 10.2 mg/dL [facility] External Total Protein 6.6 6.4 - 8.3 g/dL [facility] External Albumin 4.1 3.5 - 5.2 g/dL [facility] External Globulin 2.5 1.5 - 4.5 g/dL (calc) [facility] External Albumin/Globulin Ratio 1.6 1.1 - 2.5 (calc) [facility] External Bilirubin Total 0.6 0.1 - 1.2 mg/dL [facility] External Alkaline Phosphatase 113 40 - 129 U/L [facility] External AST (SGOT) 19 0 - 40 U/L [facility] External ALT (SGPT) 12 0 - 41 U/L [facility] External Estimated GFR 89 >=60 [facility] Comment: NOTE New calculation for GFR (CKD-EPI 2020) is formulated without race adjustment factors at the recommendation of the National Kidney Foundation and [place] [employer]ph[employer]. This calculation has not been validated in women. For pediatric patients refer to https://www.kidney.org/professionals/KDOQI/gfr_calculatorPed 04/04/2022 10:3 5 AM EDT 04/04/2022 10:57 AM EDT Bhargav Gambino MD LAB BLOOD ORDERABLES Final R esult [facility] [address] [place], [place] [id number], documented in this encounter Visit Diagnoses Not on filedocumented in this encounter
--- OUTSIDE RECORDS SUMMARY | 2025-08-09 13:46 | XMS_ITS | Encounter Summary ---
Author Organization Healthcare Address [address] [place] [address] Care Team Providers Care Director Summer Sessions Name Role Phone Unavailable Primary Care Provider Unavailabl e Encounter Details Date Type Department Care Team (Late st Contact Info) Description 10/04/2022 Orders Only [facility] @ [facility] [address] [place] [address] Bhargav Gambino MD [address] [facility] [address] [place] [address] Social History Tobacco Use Types Packs/Day Years [...] Priority Date/Time Associated Diagnosis Comments TSH Routine 10/04/2022 12:19 PM EST documented in this encounter Results * (ABNORMAL) Thyroid Stimulating Hormone, Plasma (10/04/2022 12:19 PM EST) External Thyroid Stimulating Hormone (TSH) 5.310(H) 0.270 - 4.200 uIU/mL [facility] 10/04/2022 12:1 9 PM EST 10/04/2022 12:41 PM EST us Bhargav Gambino MD LAB BLOOD ORDERABLES Final R esult [facility] [address] [place] [address], documented in this encounter Visit Diagnoses Not on filedocumented in this encounter
--- OUTSIDE RECORDS SUMMARY | 2025-08-09 13:46 | XMS_ITS | Encounter Summary ---
Author Organization Healthcare Address [address] [place] [address] Care Team Providers Care Renovator Machine Operator Name Role Phone Unavailable Primary Care Provider Unavailabl e Encounter Details Date Type Department Care Team (Late st Contact Info) Description 10/04/2022 Orders Only [facility] @ [facility] [address] [place] [address] Bhargav Gambino MD [address] [facility] [address] [place] [address] Social History Tobacco Use Types Packs/Day Years [...] Associated Diagnosis Comments LIPID PROFILE, PLASMA Routine 10/04/2022 12:19 PM EST documented in this encounter Results * Lipid Profile, Plasma (10/04/2022 12:19 PM EST) External HDL Cholesterol 40 40 - 242 mg/dL [facility] External Triglycerides 52 0 - 149 mg/dL [facility] Comment: TRIGLYCERIDE RANGES NORMAL: < 150 BORDERLINE HIGH: 150 - 199 HIGH: 200 - 499 VERY HIGH: > OR = 500 External Cholesterol 137 0 - 199 mg/dL [facility] Comment: CHOLESTEROL (TOTAL) RANGES DESIRABLE: < 200 BORDERLINE: 200 - 239 HIGHER RISK: > 239 External LDL Cholesterol 87 0 - 99 mg/dL (calc) [facility] Comment: LDL CHOLESTEROL RANGES OPTIMAL: < 100 NEAR/ABOVE OPTIMAL: 100 - 129 BORDERLINE HIGH: 130 - 159 HIGH: 160 - 189 VERY HIGH: > OR = 190 10/04/2022 12:1 9 PM EST 10/04/2022 12:41 PM EST us Bhargav Gambino MD LAB BLOOD ORDERABLES Final R esult Performing Organization Address City/State/[facility] Co de Phone Number [facility] [address] [place] [address], documented in this encounter Visit Diagnoses Not on filedocumented in this encounter
--- OUTSIDE RECORDS SUMMARY | 2025-08-09 13:46 | XMS_ITS | Encounter Summary ---
Author Organization Healthcare Address [address] [place] [address] Care Team Providers Care Net Web Application Developer Name Role Phone Unavailable Primary Care Provider Unavailabl e Encounter Details Date Type Department Care Team (Late st Contact Info) Description 10/04/2022 Orders Only [facility] @ [facility] [address] [place] [address] Bhargav Gambino MD [address] [facility] [address] [place] [address] Social History Tobacco Use Types Packs/Day Years [...] Diagnosis Comments COMPREHENSIVE METABOLIC PANEL, PLASMA Routine 10/04/2022 12:19 PM EST documented in this encounter Results * (ABNORMAL) Comprehensive Metabolic Panel, Plasma (10/04/2022 12:19 PM EST) External Glucose 142(H) 74 - 100 mg/dL [facility] External BUN 20 6 - 20 mg/dL [facility] External Creatinine Blood 0.97 0.70 - 1.28 mg/dL [facility] External BUN/Creat Ratio 21(H) 10 - 20 (calc) [facility] External Sodium 139 136 - 145 mmol/L [facility] External Potassium 4.5 3.4 - 5.0 mmol/L [facility] External Chloride 102 98 - 107 mmol/L [facility] External Carbon Dioxide 27 22 - 31 mmol/L [facility] External Anion Gap (AG) 10 7 - 25 (calc) [facility] External Calcium 9.5 8.6 - 10.2 mg/dL [facility] External Total Protein 6.9 6.4 - 8.3 g/dL [facility] External Albumin 4.3 3.5 - 5.2 g/dL [facility] External Globulin 2.6 1.5 - 4.5 g/dL (calc) [facility] External Albumin/Globulin Ratio 1.7 1.1 - 2.5 (calc) [facility] External Bilirubin Total 0.6 0.1 - 1.2 mg/dL [facility] External Alkaline Phosphatase 115 40 - 129 U/L [facility] External AST (SGOT) 18 0 - 40 U/L [facility] External ALT (SGPT) 14 0 - 41 U/L [facility] External Estimated GFR 80 >=60 [facility] Comment: NOTE New calculation for GFR (CKD-EPI 2020) is formulated without race adjustment factors at the recommendation of the National Kidney Foundation and [place] [employer]ph[employer]. This calculation has not been validated in women. For pediatric patients refer to https://www.kidney.org/professionals/KDOQI/gfr_calculatorPed 10/04/2022 12:1 9 PM EST 10/04/2022 12:41 PM EST us Bhargav Gambino MD LAB BLOOD ORDERABLES Final R esult [facility] [address] [place] [id number], documented in this encounter Visit Diagnoses Not on filedocumented in this encounter
[2025-08-09 14:29] LABS: Albumin Level 4.4 g/dl (3.5-5.0); Chloride 103 mmol/L (98-107); Sodium 137 mmol/L (136-145)
[2025-08-09 14:31] LABS: Creatinine,Serum 0.90 mg/dl (0.66-1.25); Estimated Glomerular Filt Rate 81 ml/min (>60); GFR (African American) 98 ML/MIN (>60)
[2025-08-09 14:32] LABS: Alanine Aminotransferase 12 U/L (12-78); Bilirubin,Total 1.1 mg/dl (0.2-1.3); Carbon Dioxide 25 mmol/L (22.0-30.0)
[2025-08-09 14:37] LABS: Anion Gap 13.6 mEq/L (5-15); Potassium 4.6 mmoL/L (3.5-5.1)
[2025-08-09 14:40] LABS: Albumin/Globulin Ratio 2.0 (1.1-1.8); Alkaline Phosphatase 95 U/L (38-126); Aspartate Amino Transferase 31 U/L (17-59); Blood Urea Nitrogen 19 mg/dl (9-20); Calcium 9.2 mg/dl (8.4-10.2); Globulin 2.2 g/dL (1.3-3.2); Glucose 103 mg/dl (74-100); Total Protein,Serum 6.6 g/dl (6.3-8.2)
== END 2025-08-09 23:59 | disposition home or self-care (01) ==
PROVIDERS: PCP Internal Medicine; Visit Provider Internal Medicine Medical Oncology
DX: C91.10 Chronic lymphocytic leukemia of B-cell type not having achieved remission (principal)
CPT/HCPCS: 36415; 80053; 83615